=== PATIENT | female | born 1995 | race Caucasian/White ===

== ENCOUNTER 2016-04-06 13:46 | Emergency (ER) | payer BC | END 2016-04-06 16:07 | disposition left against medical advice (07) | LOC: UCCORT 13:46 | DX: H92.09 Otalgia, unspecified ear (principal); R09.89 Other specified symptoms and signs involving the circulatory and respiratory systems; Z53.21 Procedure and treatment not carried out due to patient leaving prior to being seen by health care provider ==

== ENCOUNTER 2016-04-07 13:52 | Emergency (ER) | payer BC ==
[2016-04-07 17:03] VITALS: BP 120/76
--- NOTE | 2016-04-07 17:45 | UC ---
Throat Pain/Nasal Jacob HPI - HPI Summary HPI Summary: 1 week of sinus congestion, cough, malaise, headache. No measured fevers, but some shaking chills at night. Epidemic levels of flu on campus, no flu shot. - History of Current Complaint Chief Complaint: UCRespiratory Stated Complaint: EAR COMPLAINT Time Seen by Provider: 04/07/16 16:58 Hx Obtained From: Patient Hx Last Menstrual Period: 04/04/16 ?: No Onset/Duration: Gradual Onset, Lasting Weeks - 1 Severity: Mild Cough: Productive - yellow Associated Signs & Symptoms: Positive: Dysphagia - mild today, Hoarseness, Sinus Discomfort, Nasal Discharge, Fever - subjective. Negative: Drooling, Wheezing, Vomiting - Epiglottits Risk Factors Epiglottis Risk Factors: Negative - Allergies/Home Medications Allergies/Adverse Reactions: Allergies Allergy/AdvReac Type Severity Reaction Status Date / Time No Known Allergies Allergy Verified 04/07/16 16:56 Home Medications: Home Medications Hydrocortisone Valerate [Westcort] 0.2 % EX PRN 04/07/16 [History] PMH/Surg Hx/FS Hx/Imm Hx Previously Healthy: Yes - Surgical History Surgical History: Yes Surgery Procedure, Year, and Place: bilateral eye surgeries x3 - Family History Known Family History: Negative: Cardiac Disease, Diabetes, Renal Disease, Respiratory Disease, Seizure Disorder, Blood Disorder - Social History Occupation: Student Lives: Alone - dorm Alcohol Use: Occasionally Substance Use Type: None Smoking Status (MU): Never Smoked Tobacco Review of Systems Constitutional: Fever, Chills, Fatigue Skin: Negative Eyes: Negative ENT: Sore Throat, Nasal Discharge Respiratory: Cough Cardiovascular: Negative Gastrointestinal: Negative Genitourinary: Negative Motor: Negative Neurovascular: Negative Musculoskeletal: Negative Neurological: Negative Psychological: Negative All Other Systems Reviewed And Are Negative: Yes Physical Exam Triage Information Reviewed: Yes Appearance: Well-Appearing, No Pain Distress, Well-Nourished Vital Signs: Initial Vital Signs Temp 99.1 F 04/07/16 16:58 Pulse 83 04/07/16 16:58 Resp 16 04/07/16 16:58 BP 120/76 04/07/16 16:58 Pulse Ox 97 04/07/16 16:58 Vital Signs Reviewed: Yes Eye Exam: Normal ENT: Positive: Hearing grossly normal, Pharynx normal, Nasal congestion, Nasal drainage, TMs normal, Muffled/hoarse voice - hoarse. Negative: Tonsillar swelling, Tonsillar exudate, Trismus Neck exam: Normal Respiratory Exam: Normal Respiratory: Positive: Lungs clear, Normal breath sounds, No respiratory distress Cardiovascular Exam: Normal Abdominal Exam: Normal Musculoskeletal Exam: Normal Neurological Exam: Normal Psychological Exam: Normal Skin Exam: Normal Throat Pain/Nasal Course/Dx - Differential Dx/Diagnosis Differential Diagnosis/HQI/PQRI: Pharyngitis, Sinusitis, URI Provider Diagnoses: URI Discharge - Discharge Plan Condition: Stable Disposition: HOME Prescriptions: Benzonatate CAP* [Tessalon CAP*] 100 mg PO TID PRN #20 cap PRN Reason: Cough Mometasone Furoate [Elocon] 0.1 % EX BID PRN #1 cre PRN Reason: itchy rash Pseudoephedrine HCl [Sudafed 12 Hour] 120 mg PO BID PRN #20 tab PRN Reason: Congestion Patient Education Materials: Upper Respiratory Infection (ED) Forms: *School Release Referrals: No Primary Care Phys,NOPCP [Primary Care Provider] - Additional Instructions: This could be a mild case of influenza, or it could be another type of upper respiratory virus. The treatment for both is the same: rest, fluids, symptomatic treatments. The cough with the upper respiratory virus sometimes lasts for 3-5 weeks.
== END 2016-04-07 17:53 | disposition home or self-care (01) ==
LOC: UCCORT 13:52
DX: J06.9 Acute upper respiratory infection, unspecified (principal)
CPT/HCPCS: 99212; G0463